=== PATIENT | female | born 1970 ===

== ENCOUNTER 2017-11-30 07:02 | Emergency (ER) | payer OTHER ==
[2017-11-30 07:17] VITALS: BP 134/81; PULSE 78; RESP 17; TEMP 97.9; O2SAT 100
--- NOTE | 2017-11-30 08:37 | C.PDOC ---
History Of Present Illness 47-year-old female, presents to the emergency department after being stuck with needle 11 days ago. 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 Patient denies nausea/vomiting, fever, rash or any other associated symptoms. No other complaints at this time. Time Seen by Provider: 11/30/17 07:45 Chief Complaint (Nursing): Needle Stick History Per: Patient History/Exam Limitations: no limitations Past Medical History Reviewed: Historical Data, Nursing Documentation, Vital Signs Vital Signs: Last Vital Signs Temp 97.9 F 11/30/17 07:16 Pulse 78 11/30/17 07:16 Resp 17 11/30/17 07:16 BP 134/81 11/30/17 07:16 Pulse Ox 100 11/30/17 09:46 Family History: States: No Known Family Hx - Social History Hx Alcohol Use: No Hx Substance Use: No - Immunization History Hx Tetanus Toxoid Vaccination: Yes Hx Influenza Vaccination: No Hx Pneumococcal Vaccination: No Review Of Systems Constitutional: Negative for: Fever, Chills Respiratory: Negative for: Cough, Shortness of Breath Gastrointestinal: Negative for: Nausea, Vomiting Musculoskeletal: Negative for: Neck Pain, Back Pain Physical Exam - Physical Exam Appears: Non-toxic, No Acute Distress Skin: Normal Color, Warm, Dry, No Rash Head: Atraumatic, Normacephalic Eye(s): bilateral: Normal Inspection Nose: Normal Lips: Normal Appearing Neck: Normal ROM Respiratory: No Accessory Muscle Use (No apparent respiratory distress) Extremity: No Deformity, No Swelling Neurological/Psych: Oriented x3, Normal Speech ED Course And Treatment O2 Sat by Pulse Oximetry: 100 (RA) Pulse Ox Interpretation: Normal Progress Note: Explained to patient that she is out of the window for prophylactic treatment Medical Decision Making Medical Decision Making: The patient was given follow up for outpatient testing. Disposition - Disposition Referrals: [facility] [Outside] Disposition: HOME/ ROUTINE Disposition Time: 08:34 Condition: STABLE Additional Instructions: FOLLOW UP WITH THE CLINIC FOR A FULL PANEL OF TESTING. RETURN IF WORSENED Forms: Gen Discharge Inst Nauruan Print Language: DANISH - Clinical Impression Clinical Impression: Needle stick injury - Scribe Statement The provider has reviewed the documentation as recorded by the Scribe (Hallie Pathak) All medical record entries made by the Scribe were at my direction and personally dictated by me. I have reviewed the chart and agree that the record accurately reflects my personal performance of the history, physical exam, medical decision making, and the department course for this patient. I have also personally directed, reviewed, and agree with the discharge instructions and disposition.
== END 2017-11-30 08:45 | disposition home or self-care (01) ==
LOC: C.ER 07:02
DX: S69.92XA Unspecified injury of left wrist, hand and finger(s), initial encounter (principal); W46.0XXA Contact with hypodermic needle, initial encounter; Y93.E9 Activity, other interior property and clothing maintenance; Y92.59 Other trade areas as the place of occurrence of the external cause; Y99.0 Civilian activity done for income or pay